=== PATIENT | female | born 1940 | race Caucasian/White ===

== ENCOUNTER 2016-07-26 15:38 | Emergency (ER) | payer MEDICARE, BC ==
--- NOTE | ~2016-07-26 | EKG ---
PATIENT: VINICIO IVORY UNIT #: [id number] Ventricular Rate: 77 BPM Atrial Rate: 77 BPM P-R Interval: 156 ms QRS Duration: 84 ms Q-T Interval: 400 ms QTC Calculation(Bezet): 452 ms P [place]: 67 degrees Calculated R [place]: 80 degrees Calculated T [place]: 91 degrees Diagnosis Line: Normal sinus rhythm Diagnosis Line: Left ventricular hypertrophy Diagnosis Line: Nonspecific ST and T wave abnormality Diagnosis Line: Abnormal ECG Diagnosis Line: When compared with ECG of 20-OCT-2014 16:34, Diagnosis Line: Nonspecific T wave abnormality now evident in Diagnosis Line: Anterolateral leads Diagnosis Line: Confirmed by RICK DUMONT MD ([id number]) on Diagnosis Line: 07/26/2016 9:39:09 PM INTERPRETING MD: CARLENE
[2016-07-26 15:08] LABS: POC - CKMB 1.5 ng/mL (0.0-7.9); POC - TROPONIN <0.05 ng/mL (<=0.05)
[2016-07-26 15:26] LABS: BASOPHIL# 0.1 X10e3 (0-0.3); BASOPHIL% 0.7 % (0-2.5); EOSINOPHIL# 0.2 X10e3 (0-0.7); EOSINOPHIL% 1.4 % (0.0-7.0); HEMOGLOBIN 15.4 gm/dL (12.0-16.0); LYMPHOCYTE# 1.8 X10e3 (1.0-3.5); MEAN CELL VOLUME 90.8 FL (83-96); MEAN CORPUSCULAR HEMOGLOBIN 30.5 PG (28-34); MEAN CORPUSCULAR HGB CONC 33.6 g/dL (30-36); MEAN PLATELET VOLUME 7.8 FL (6.5-11.5); MONOCYTE# 0.8 X10e3 (0-1.0); NEUTROPHIL# 8.5 X10e3 (1.5-7.1); NEUTROPHIL% 74.9 % (40-75); PLATELET COUNT 235 X10e3 (140-420); RED BLOOD COUNT 5.07 X10e (3.90-5.30); RED CELL DISTRIBUTION WIDTH 13.5 % (11.0-15.5); WHITE BLOOD COUNT 11.3 X10e3 (4.0-10.5)
[2016-07-26 15:27] LABS: DIFF IND NO
[~2016-07-26 15:38] MED LIST: AMLODIPINE BESY10 MG PO; ASPIRIN81 M1 PO; ASPIRIN81 M2 PO; AZOR 10/20 MG T1 TAB PO; BAYER CHEWABLE81 MG PO; BENICAR20 MG PO; CALCIUM + D 6001 TA1 PO; CALCIUM 500 + D1 TAB; CALCIUM 500 +1 EAC2 PO; CALCIUM 600 +1 EAC2 PO; CALCIUM CITRAT1 EAC2 PO; CARVEDILOL3.125 MG PO; CARVEDILOL6.25 MG PO; CENTRUM SILVER PO; CIPRO PO; CLORAZEPATE DI7.5 MG PO; COLACE; COREG6.25 MG PO; CYANOCOBALAM1000 MCG PO; EC-NAPROSYN500 MG PO; EXELON PO; EXELON1 PATCH .2 EXT; EYE VITAMIN; EYE VITAMIN PO; FOSAMAX; HYDRALAZINE HCL50 MG PO; KEFLEX500 MG PO; LANSOPRAZOLE30 M2 PO; LASIX20 MG PO; LISINOPRIL10 MG PO; LISINOPRIL20 MG PO; LOTREL 10/20 MG1 CAP PO; LOTREL 5/20 MG1 CAP; LOVAZA1 G PO; MELOXICAM15 MG PO; MIRALAX119 GM PO; MIRALAX17 GM PO; MIRALAX255 GM PO; MOBIC PO; MULTI-VITAMIN1 EAC1 PO; NAMENDA10 MG PO; NEURONTIN; NEURONTIN100 MG PO; NORCO 5/325 TAB1 TAB PO; NORVASC10 MG PO; OCUVITE TABLET1 TA1 PO; OMEGA 3 500 SO1 EACH; OXCARBAZEPINE300 MG PO; POLYGESIC 5/5001 CAP PO; POTASSIUM CHLO10 MEQ PO; PRESERVISION1 EA PO; REMERON15 MG PO; SENOKOT S1 TAB PO; SKELAXIN; SODIUM CHLORIDE1 GM PO; TRANXENE; TRANXENE PO; TRILEPTAL; TYLENOL325 M1 PO; V-C FORTE; VITAMIN B12-FO1 EACH PO; VITAMIN B122500 MCG; ZANTAC PO; ZESTRIL40 MG PO; ZOCOR80 MG PO
[2016-07-26 15:50] LABS: CALCIUM SERUM 9.5 mg/dL (8.4-10.2); CREATININE SERUM 0.7 mg/dL (0.6-1.4); GLOM FILT RATE Estimated 84.8 mL/min (>60); POTASSIUM 4.2 mmol/L (3.5-5.1)
[2016-07-26 16:17] LABS: URINE SOURCE CLEAN CATCH
[2016-07-26 16:33] LABS: URBCS1 AUWI 0-2 /[HPF] (0-2); URINE APPEARANCE CLEAR; URINE BACTERIA AUWI 4+ (NEGATIVE); URINE BILIRUBIN NEG (NEG); URINE BLOOD NEG (NEG); URINE COLOR YELLOW; URINE GLUCOSE NEG (NEG); URINE KETONE NEG (NEG); URINE LEUKOCYTE ESTERASE TRACE (NEG); URINE NITRATE NEG (NEG); URINE PH 6.5 (5-8); URINE PROTEIN NEG (NEG); URINE SPECIFIC GRAVITY 1.009 (1.003-1.035); URINE SQUAMOUS EPITHELIAL CELL NONE SEEN /[HPF]; URINE UROBILINOGEN 0.2 MG/DL (NEG)
== END 2016-07-26 17:25 | disposition home or self-care (01) ==
LOC: CED 15:38
PROVIDERS: Emergency Medicine
DX: I10 Essential (primary) hypertension (principal); Z79.82 Long term (current) use of aspirin; Z79.899 Other long term (current) drug therapy
CPT/HCPCS: 36415; 80048; 81003; 82553; 84484; 85025; 93005; 99283

== ENCOUNTER 2016-08-25 13:12 | Emergency (ER) | payer MEDICARE, BC ==
--- NOTE | ~2016-08-25 | CR243 ---
[facility] A Service of [facility] & [facility] RADIOLOGY TEXT RESULTS PATIENT: VINICIO IVORY LOCATION: [facility] : 41 UNIT #: [id number] AGE: [address]: Larry Solis MD SEX: F ORDER DR: [id number] [facility] [address] [place], [place] [address] [id number] E MR#: [id number] Acc #: [id number] NAME: VINICIO IVORY : 1940 SEX: F STUDY DATE/TIME: 08/25/2016 16:24 UNIT: [facility] ROOM: STUDY DESCRIPTION: CR Thoracic Spine 3 Views Attending Physician: Larry Solis M.D. Ordering Physician: Larry Solis M.D. Primary Care Physician: Rolf Rubin M.D. MEDICAL IMAGING REPORT This report is preliminary unless electronic signature is present Thoracic series, 08/25/2016. INDICATIONS 76-year-old female with thoracic spine pain symptoms began . Hypertension. No known injury. ; 3 views of the thoracic spine were performed. Correlation is made with MRI 10/03/11. FINDINGS The patient is status post interval vertebroplasty change of T4 and T12. Chronic compression fracture deformity of T8. Mild chronic compression fracture deformity of superior endplate of T11. Vertebral body alignment preserved. The bones are osteoporotic. IMPRESSION 1. No acute-appearing fracture or malalignment. Chronic fracture deformities of T4, T8 and T12 with vertebroplasty change of T4 and T12. Dictated by... Curry Padilla M.D. THIS IS AN ELECTRONICALLY VERIFIED REPORT Curry Padilla M.D. at 08/25/2016 11:04 PM Cong TD: 08/25/2016 18:05 JOB #: [id number] MEDICAL IMAGING REPORT Page 1 of 1 COPY
--- NOTE | ~2016-08-25 | CR211 ---
[facility] A Service of [facility] RADIOLOGY TEXT RESULTS PATIENT: VINICIO IVORY LOCATION: [facility] : 41 UNIT #: [id number] AGE: [address]: Larry Solis MD SEX: F ORDER DR: [id number] [facility] [address] [place], [place] [address] [id number] E MR#: [id number] Acc #: [id number] NAME: VINICIO IVORY : 1940 SEX: F STUDY DATE/TIME: 08/25/2016 16:39 UNIT: [facility] ROOM: STUDY DESCRIPTION: CR Ribs Uni 2 View W PA Ch Rt Attending Physician: Larry Solis M.D. Ordering Physician: Larry Solis M.D. Primary Care Physician: Rolf Rubin M.D. MEDICAL IMAGING REPORT This report is preliminary unless electronic signature is present Frontal chest and right rib series, 08/25/2016. INDICATION Right-sided chest pain since . No known injury. ; Frontal chest and 3 views of the right ribs performed. COMPARISON 10/20/14 FINDINGS The patient is status post vertebroplasty at T4 and T12. Cardiac silhouette is enlarged but stable. Vascularity unremarkable. Lungs appear clear. There are chronic-appearing fracture deformities of the fifth, sixth, seventh and eighth ribs on the right. No definite acute fracture. No pneumothorax. There is an age indeterminate but likely chronic fracture deformity of the anterolateral right second rib. Correlate with patient point tenderness. IMPRESSION 1. Chronic-appearing fracture deformities of the fifth through eighth ribs on the right. Age indeterminate but likely chronic fracture of the anterolateral right second rib. Correlate with patient point tenderness. 2. Vertebroplasty changes of T4 and T12 chronic fracture deformity of T8. 3. Lungs clear. Dictated by... Curry Padilla M.D. [facility] A Service [facility] RADIOLOGY TEXT RESULTS PATIENT: VINICIO IVORY LOCATION: [facility] : 41 UNIT #: [id number] AGE: [address]: Larry Solis MD SEX: F ORDER DR: THIS IS AN ELECTRONICALLY VERIFIED REPORT Curry Padilla M.D. at 08/25/2016 11:05 PM oCng TD: 08/25/2016 18:30 JOB #: [id number] MEDICAL IMAGING REPORT Page 1 of 1 COPY
--- NOTE | ~2016-08-25 | CR206 ---
[facility] A Service of [facility] & [facility] RADIOLOGY TEXT RESULTS PATIENT: VINICIO IVORY LOCATION: [facility] : 41 UNIT #: [id number] AGE: [address]: Larry Solis MD SEX: F ORDER DR: [id number] [facility] [address] [place], [place] [address] [id number] E MR#: [id number] Acc #: [id number] NAME: VINICIO IVORY : 1940 SEX: F STUDY DATE/TIME: 08/25/2016 16:27 UNIT: [facility] ROOM: STUDY DESCRIPTION: CR Pelvis 1 or 2 Views Attending Physician: Larry Solis M.D. Ordering Physician: Larry Solis M.D. Primary Care Physician: Rolf Rubin M.D. MEDICAL IMAGING REPORT This report is preliminary unless electronic signature is present Frontal pelvis, 08/25/2016. INDICATIONS 76-year-old female complaining of pelvic pain since . Right-sided pelvic pain; frontal pelvis, no comparisons. FINDINGS Degenerative change of both hips present, the bones are osteoporotic. There is degenerative change of the lower lumbar spine and right SI joint. No acute fracture. IMPRESSION 1. Osteoporosis and degenerative changes, but no acute fracture. Dictated by... Curry Padilla M.D. THIS IS AN ELECTRONICALLY VERIFIED REPORT Curry Padilla M.D. at 08/25/2016 11:04 PM Cong TD: 08/25/2016 18:18 JOB #: [id number] MEDICAL IMAGING REPORT Page 1 of 1 COPY
--- NOTE | ~2016-08-25 | CR181 ---
[facility] A Service of [facility] & [facility] RADIOLOGY TEXT RESULTS PATIENT: VINICIO IVORY LOCATION: [facility] : 41 UNIT #: [id number] AGE: [address]: Larry Solis MD SEX: F ORDER DR: [id number] [facility] [address] [place], [place] [address] [id number] E MR#: [id number] Acc #: [id number] NAME: VINICIO IVORY : 1940 SEX: F STUDY DATE/TIME: 08/25/2016 16:24 UNIT: [facility] ROOM: STUDY DESCRIPTION: CR Lumbar Spine 2 or 3 Views Attending Physician: Larry Solis M.D. Ordering Physician: Larry Solis M.D. Primary Care Physician: Rolf Rubin M.D. MEDICAL IMAGING REPORT This report is preliminary unless electronic signature is present Lumbar series, 08/25/2016. INDICATIONS 76-year-old female with low back pain, possible right-sided fracture. Symptoms since . Right-sided chest and pelvic pain. History of vertebroplasty. ; 3 views of the lumbar spine compared with MRI 02/17/2014. FINDINGS There are vertebroplasty changes at T12. Chronic compression fracture deformity of T11. There is advanced degenerative disc disease at L1-2 with a chronic fracture deformity of the superior endplate of L2. Degenerative disc disease also present at L3-4. There is spurring most conspicuous at L4 and L5. Degenerative disc space narrowing at L5-S1 as well. There is at least mild facet arthropathy throughout the lumbar spine. No malalignment. Atherosclerotic calcifications present. There is mild levoscoliosis. Marginal osteophyte formation in the lower lumbar levels. IMPRESSION 1. Osteoporosis. No acute-appearing fracture or malalignment. 2. Degenerative changes as described above related to degenerative disc disease and facet arthropathy. 3. Vertebroplasty change at T12, chronic compression fracture deformity L2 and T11. Dictated by... Curry Padilla M.D. THIS IS AN ELECTRONICALLY VERIFIED REPORT Curry Padilla M.D. at 08/25/2016 11:04 PM [facility] A Service of [facility] & [facility] RADIOLOGY TEXT RESULTS PATIENT: VINICIO IVORY [facility] #: [id number] : 42 UNIT #: [id number] AGE: [address]: Larry Solis MD SEX: F ORDER DR: JACQUIE/charles TD: 08/25/2016 18:07 JOB #: [id number] MEDICAL IMAGING REPORT Page 1 of 1 COPY
== END 2016-08-25 18:28 | disposition home or self-care (01) ==
LOC: CED 13:12
DX: S20.219A Contusion of unspecified front wall of thorax, initial encounter (principal); S23.3XXA Sprain of ligaments of thoracic spine, initial encounter; S33.5XXA Sprain of ligaments of lumbar spine, initial encounter; W19.XXXA Unspecified fall, initial encounter; Y92.009 Unspecified place in unspecified non-institutional (private) residence as the place of occurrence of the external cause
CPT/HCPCS: 71101; 72072; 72100; 72170; 99284